=== PATIENT | female | born 1945 | race Caucasian/White ===

== ENCOUNTER → 2016-12-16 | Outpatient (CLI) | payer OTHER ==
--- NOTE | 2016-12-17 18:51 | DI ---
CT LUMBAR SPINE SCAN, 12/16/2016 12:50 PM : Clinical History: Pathological fracture of sacral vertebral body. Previous Exam: 10/12/2016. Scans are obtained from T11 to the first coccygeal segment without IV contrast. Sagittal and coronal reformatted images are generated. Curved coronal and reformatted axial scans parallel to the disc spa jean-paul are produced. The vertebral bodies are of normal height and size. There are laminectomies at L4 and L5 and anterior and posterior fusions have been performed between L3-4 and L5-S1. Posterior fusions are accomplished with metallic struts transfixed with pedicle screws between L3 and S1. There is disc space narrowing at L1-2 and L2-3. There is diffuse osteoporosis. No fractures are identified. Specifically, no defin ite fracture is seen in the sacrum. In the L3 vertebral body, cement has been injected and the pedicl e screws are embedded in the cement. The bone graft cage is in 2 separate pieces at L3-4 and there is no continuity of bone indicating nonunion. The bone graft cage at L4-5 is in 2 separate segments and there is continuity of bone. The bone graft cage at L5-S1 is in 2 separate pieces and there is no co ntinuity of bone. Bone grafts surround the metallic hardware from L3-4 through L5-S1, and there is no solid fusion between the bone grafts and S1 and the bone grafts and L3. On the previous study there was high density material along the left multifidus muscle but this is no longer visible. This high d ensity material probably was contrast from an injection procedure performed the same day. Both SI edy nts are normal. There is osteoporosis. T11-12 has a focal left lateral disc herniation that is partially calcified. There is no canal or nadia ral foraminal stenosis. T12-L1 has a focus of calcification in the disc but the disc space is normal. The L1-2 and L2-3 disc spaces have bulging but not herniated disc without canal or neural foraminal stenosis. The L3-4 through L5-S1 disc spaces show no canal or neural foraminal stenosis. READIN. Status post L4 and L5 laminectomies with anterior and posterior fusions between L3-4 and L5-S1. P osterior fusions are performed with metallic struts transfixed with pedicle screws between L3 and S1 and bone grafts. The bone grafts are solid only between L4 and L5. The anterior fusions are solid onl y at L4-5. There is no canal or neural foraminal stenosis from L3-4 through L5-S1. 2. There is a focal left lateral disc herniation at T11-12 that is partially calcified. There is no canal or neural foraminal stenosis. 3. L1-2 and L2-3 have bulging but not herniated discs without canal or neural foraminal stenosis. Th e T12-L1 disc space is normal. 4. Osteoporosis. No sacral fracture is identified.
== END ==
LOC: CT 12:44
PROVIDERS: ATTEND Neurological Surgery
DX: M84.48XA Pathological fracture, other site, initial encounter for fracture (principal); M79.605 Pain in left leg; Z98.1 Arthrodesis status
CPT/HCPCS: 72131; 99213; G0463

== ENCOUNTER → 2016-12-29 | Outpatient (CLI) | payer OTHER ==
[2016-12-29 15:43] LABS: BILIRUBIN,TOTAL 0.4 mg/dL (0.3-1.2); CALCIUM 9.3 mg/dL (8.7-10.7); POTASSIUM 4.3 meq/L (3.8-5.2); TOTAL PROTEIN 6.4 g/dL (6.1-8.0)
[2016-12-29 15:45] LABS: HEMOGLOBIN A1C 5.63 % (4.2-6.0); MEAN BLOOD GLUCOSE (CALC) 101.479 mg/dL
== END ==
LOC: LAB 09:27
PROVIDERS: ATTEND Physician Assistant Medical
DX: E11.69 Type 2 diabetes mellitus with other specified complication (principal); E03.9 Hypothyroidism, unspecified; I10 Essential (primary) hypertension; E78.5 Hyperlipidemia, unspecified; R79.9 Abnormal finding of blood chemistry, unspecified
CPT/HCPCS: 80053; 83036; 84443

== ENCOUNTER 2016-12-30 13:14 | Day surgery (SDC) | payer OTHER ==
[~2016-12-30 13:14] MED LIST: BETAMET ACET/BETAMET NA PH 6 MG/1 ML - 5 ML IAC ONE; Iopamidol Inj 61% 50 ML VIAL INTRATHEC ONE; LIDOCAINE IM ONE; Ropivacaine 0.2% VIAL 2 MG/ML VIAL IAC ONE; SODIUM BICARB IM ONE
[2016-12-30 13:49] VITALS: RESP 14; TEMP 97.8
--- NOTE | 2016-12-30 17:51 | GEN.OPNOTE ---
Facet Injection Procedure: Other (Left SI joint injection) Procedure Code - Neurosurgery: Other (57094) -: Consent: Rationale for procedure, nature of procedure, possible risks and benefits were discussed with the patient. Risks including allergic reaction to medications, known effects of steroid medications including transient elevations in blood sugar with aggravation of pre-existing diabetes and remote risk of aseptic necrosis of the hip. Infection or bleeding with potential risk of neurologic injury with weakness, paralysis or were all reviewed with the patient who wished to proceed. Anesthesia, sedation: No intravenous access or sedation was used. Physiologic monitoring of pulse and oxygen saturation was utilized. Procedure: The patient was placed prone on the operating room table, prepped with Chloroprep and sterilely draped. The skin was anesthetized with 1% Buffered Xylocaine. Under fluoroscopic control a 22-gauge needle was advanced into the left SI joint . Omnipaque was injected under real-time fluoroscopy. Following this [1] ml of a mixture of Celestone (6mg/ml) and Ropivacaine was injected. AP images of the final needle placement was obtained. The needle was removed and the patient returned to the post procedure recovery room where they were monitored for any side effects. Pain assessment: Preprocedure pain [7/10]/10, post procedure pain [6/10]/10. Discharge instructions: Patient was given a pain log to be filled out and returned. A delayed response to the steroids of 2-5 days was discussed.
== END 2016-12-30 14:43 | disposition home or self-care (01) ==
LOC: SDSC 13:14
PROVIDERS: ATTEND Neurological Surgery
DX: M53.3 Sacrococcygeal disorders, not elsewhere classified (principal)
CPT/HCPCS: 27096; 76000; J0702; J2795; J2001

== ENCOUNTER 2017-01-18 13:10 | Observation (INO) | payer OTHER ==
[2017-01-18] MEDS ORDERED: LORazepam 2 MG/1 ML VIAL IVP ONE (13:51)
[2017-01-18] MEDS ORDERED: KETOROLAC 30 MG/1 ML VIAL IVP ONE (13:51)
[2017-01-18] MEDS ORDERED: fentaNYL Inj 100 MCG/2 ML VIAL IVP ONE (13:54)
[2017-01-18] MEDS ORDERED: Sodium Chloride 0.9% 1,000 ML PRIMARY IV SCH ×2 (14:00→19:44)
--- NOTE | 2017-01-18 14:00 | PDOC ---
Hip Injury/Pain HPI - General Chief Complaint: Lower Extremity Problem/Injury Stated Complaint: LEFT HIP PAIN Date Seen by Provider: 01/18/17 Time Seen by Provider: 13:55 Source: POSITIVE: Patient Exam Limitations: POSITIVE: No limitations Nurse's Notes Reviewed & Considered: Yes - History of Present Illness Initial Comments: Patient comes in today with chief complaint of leg pain and left sacroiliac pain. She had a steroid injection into her SI joints on December 30. She's had continued and escalating pain since that wraps around her left hip and radiates into her groin. She denies any fever chills or sweats, nausea vomiting or diarrhea, no hematuria or dysuria. He now has weakness in her left leg and has had intermittent falls because her legs become suddenly weak and does not support her weight. SHe denies Any foot drop, no loss of continence of urine or stool. Have you received a tetanus shot in the past 10 years?: Yes Location: Left Hip Timing: REPORTS: Constant, Getting Worse Duration: >1 week Severity: Severe Location at Time of Onset: REPORTS: Other (Status post steroid injection of the left SI joint.) Quality: REPORTS: "Pain", Sharpness, Stabbing, Throbbing, Tenderness Modifying Factors: REPORTS: Walking, Movement, Nothing Relieves Symptoms Prior to Fall: REPORTS: Weakness Subsequent Symptoms: REPORTS: Weakness Similar Symptoms Previously: No Recent Care Received: REPORTS: Treated by MD Any Prior Injuries Related to Current Complaint?: No - Patient Home Medications Home Medications: Home Medications Aspirin 81 mg PO DAILY tab 05/07/15 Cyanocobalamin (Vitamin B-12) [B-12] 250 mcg PO QD tab 05/07/15 Docusate Sodium [Stool Softener] 100 mg PO DAILY cap 05/07/15 Garlic 1 each PO QD cap 05/07/15 Lactobacillus Acidophilus [Acidophilus] 1 each PO QD cap 05/07/15 Multivitamin [Daily Vitamin] 1 tab PO DAILY tab 05/07/15 [place]-3 Fatty Acids/Fish Oil [Fish Oil 1,000 Mg Capsule] 1 each PO QD cap 05/07 Ubidecarenone [Co Q-10] 400 mg PO QD cap 05/07/15 Oxygen (O2) 1 l NS ASDIR #1 unit 04/16/16 Epinephrine [Epipen 2-Alfonzo] 0.3 mg IM PRN #2 unit 06/23/16 Celecoxib [Celebrex] 1 cap PO BID #180 cap 08/18/16 Esomeprazole Magnesium [Nexium] 40 mg PO QD #90 cap 08/18/16 Estrogens, Conj Vaginal Cream [Premarin Vaginal Cream] 1 gm VAGINAL 3XW #3 tube 08/18/16 Fluoxetine HCl [Prozac] 1 cap PO BID #180 cap 08/18/16 Furosemide [Lasix] 1 tab PO DAILY #90 tab 08/18/16 Gabapentin [Neurontin] 1 cap PO TID #270 cap 08/18/16 Levothyroxine Sodium [Synthroid] 1 tab PO DAILY #90 tab 08/18/16 Lisinopril 1 tab PO DAILY #90 tab 08/18/16 Oxybutynin Chloride [Ditropan Xl] 5 mg PO DAILY #90 tab 08/18/16 Pioglitazone HCl [Actos] 15 mg PO DAILY #90 tab 08/18/16 Potassium Chloride [K-Tab Er] 10 meq PO QD #90 tab 08/18/16 Simvastatin [Zocor] 1 tab PO DAILY #90 tab 08/18/16 Trazodone HCl 1 tab PO QHS #90 tab 08/18/16 Methylprednisolone [Medrol] 4 mg PO 3-4XD #1 box 09/17/16 Oxycodone HCl/Acetaminophen [Percocet 5-325 Mg Tablet] 1 tab PO Q4-6H #60 tab Tizanidine HCl 1 cap PO TID #90 cap 09/17/16 Blood Sugar Diagnostic [Precision Xtra] 1 each IN BID #360 strip 11/10/16 - Patient Allergies Allergies/Adverse Reactions: Allergies Allergy/AdvReac Type Severity Reaction Status Date / Time venom-honey bee Allergy Severe Anaphylaxis Verified 01/18/17 13:30 venom-wasp Allergy Severe Anaphylaxis Verified 01/18/17 13:30 aspirin Allergy Intermediate NOT Verified 01/18/17 13:30 APPLICABLE codeine Allergy Intermediate NOT Verified 01/18/17 13:30 APPLICABLE morphine Allergy Intermediate NOT Verified 01/18/17 13:30 APPLICABLE Penicillins Allergy Intermediate NOT Verified 01/18/17 13:30 APPLICABLE Past Medical History - heen HEENT History: Other (please comment) Additional HEENT History: WEARS GLASSES Cardiovascular History: Hypertension, Hyperlipidemia Respiratory History: Denies History Gastrointestinal History: GERD Genitourinary History: Other (please comment) Additional Genitourinary History: OVER ACTIVE BLADDER Endocrine History: Type 2 Diabetes (oral), Hypothyroidism Musculoskeletal History: Arthritis, Muscle Weakness, Limited ROM, Joint Pain Prosthesis or Implant: Yes (RIGHT KNEE REPLACEMENT) Neurological History: Denies History Blood Disorders: Denies History Psychiatric History: Depression, Anxiety Disorders History of Sexually Transmitted Diseases: No Female Reproductive History: Hysterectomy Obstetrical History: Denies History Cancer History: Denies History In Past Year Been Physically Harmed or Verbally Threatened: No (PER PATIENT) History of MDRO: No History of Other Communicable Diseases: No Tobacco Use: Never Smoker Alcohol Use: Occasionally Substance Use Type: None Previous Surgical History: Yes Type / Date of Surgery: CHOLECYSTECTOMY, ABDOMINAL ADHESION SURGERY, PARTIAL HYSTERECTOMY, SINUS SURGERY, LEFT HAND SURGERY, LEFT TARSAL TUNNEL, RIGHT CARPAL TUNNEL, RIGHT KNEE REPLACEMENT, L3-S1 DISCECTOMY WITH FUSION Anesthesia Reactions: No Malignant Hyperthermia: No Family History of Malignant Hyperthermia: No Significant Family History: No pertinent family hx ROS - Limitations ROS Limitations: No Limitations Constitution: REPORTS: Denies Symptoms Cardiovascular: REPORTS: Denies Cardiac Symptoms Respiratory: REPORTS: Denies Resp Symptoms Neurological: REPORTS: Weakness Gastrointestinal: REPORTS: Denies GI Symptoms Endocrine: REPORTS: Denies Symptoms Musculoskeletal: REPORTS: Other (Last S sign joint tenderness and tenderness over her left hip) Genitourinary: REPORTS: Denies Symptoms Eyes: REPORTS: Denies Symptoms ENT: REPORTS: Denies Symptoms Skin: REPORTS: Denies Skin Symptoms Lympathic: REPORTS: Denies Lympathic Symptoms Immunologic: POSITIVE: Denies Symptoms Psychiatric: POSITIVE: Denies Psych Symptoms Hip Injury / Pain Exam - General Appearance General Appearance: POSITIVE: Alert, Cooperative, No Evidence of Trauma, Anxious , Severe Distress - Lower Extremity Extremities: POSITIVE: No Pedal Edema, No Obvious Injury to Knee, No Deformity to Knee, Hip Pain on Leg Movement - HEENT HEENT: POSITIVE: Head Inspection Nml, Eyes Inspection Nml, Ears Inspection Nml, Nose Inspection Nml, PERRL, EOMI - Pupil Size Pupil Size: 4 mm: Bilateral - Neck/Back Neck: POSITIVE: Normal Inspection, Non-Tender Back: POSITIVE: Normal Inspection, No CVA Tenderness, Non Tender, Painless ROM - Respiratory / CVS Cardiovascular: POSITIVE: Regular Rate and Rhythm, Heart Sounds Normal Respiratory: POSITIVE: Chest Non Tender, No Ecchymosis, Breath Sounds Normal, No Respiratory Distress Peripheral Pulses: Dorsalis-pedis (R): 2+, Dorsalis-pedis (L): 2+ - Abdomen Abdomen: Soft: (All Quadrants), Normal Bowel Sounds: (All Quadrants), Denies Tenderness: (All Quadrants) - Skin Skin: POSITIVE: Color Normal, No Rash, Warm, Dry - Neuro/Psych Neuro / Psych: POSITIVE: Oriented x 3 Reflexes: Patellar (R): 3+, Patellar (L): 3+ Hip Injury / Pain Progress - Results Reviewed by me Xrays/CTs/US Reviewed by me: Yes Discussed with Radiologist: Yes Lab Results Reviewed: Yes Lab Results:: Laboratory Results 01/18/17 Range/Units 14:11 WBC 4.16 L (4.8-10.8) 10^3/uL RBC 3.63 L (4.20-5.40) 10^6/uL Hgb 11.2 L (12.0-16.0) g/dL Hct 35.6 L (37.0-47.0) % MCV 98.1 (81-99) FL MCH 30.9 (27-31) PG MCHC 31.5 L (33-37) g/dL RDW Std Deviation 48.0 (39-50) fL RDW Coeff of Erwin 13.8 (11.5-14.5) % Plt Count 186 (140-350) 10*3/uL MPV 10.7 (7.4-12.2) FL Immature Gran % (Auto) 0 (0-5) % Neut % (Auto) 38.2 L (50-80) % Lymph % (Auto) 43.5 (10-50) % [place] % (Auto) 13.5 (5-15) % Eos % (Auto) 4.1 (0-8) % Baso % (Auto) 0.7 (0-1) % Immature Gran # (Auto) 0 10*3/UL Neut # (Auto) 1.59 10*3/UL Lymph # (Auto) 1.81 10*3/uL [place] # (Auto) 0.56 (0.3-0.8) 10*3/UL Eos # (Auto) 0.17 10*3/UL Baso # (Auto) 0.03 10*3/UL WBC Morphology Comment Normal morphology (NORM) Plt Morphology Comment Normal morphology (NORM) RBC Morph Comment Normal morphology (NORM) ESR 23 H (0-20) MM/HR Sodium 138 (135-145) meq/L Potassium 4.5 (3.8-5.2) meq/L Chloride 101 (98-112) meq/L Carbon Dioxide 31 (23-33) meq/L Anion Gap 6 (5-20) BUN 21 (7-22) mg/dL Creatinine 1.0 (0.50-1.20) mg/dL Estimated GFR 55 (>60 ml/min/1.73m(2)) BUN/Creatinine Ratio 21.00 H (6-20) Glucose 89 (78-110) mg/dL Calculated Osmolality 287.0 (267-292) mOsm/kg Calcium 9.1 (8.7-10.7) mg/dL Magnesium 2.0 (1.6-2.4) mg/dL Total Bilirubin 0.3 (0.3-1.2) mg/dL AST 32 (8-39) IU/L ALT 37 (9-52) IU/L Alkaline Phosphatase 78 (38-126) IU/L C-Reactive Protein 0.8 (0.0-0.9) mg/dL Total Protein 6.5 (6.1-8.0) g/dL Albumin 3.6 (3.5-4.8) g/dL Globulin 2.8 (2.50-4.10) g/dL Albumin/Globulin Ratio 1.20 L (1.3-2.0) mg/g - Patient's Progress Pain Medication Addressed: POSITIVE: Yes Re-Examine Time: 17:38 Status: POSITIVE: Improved MDM / ED Course: Patient was brought back to the main emergency Department, examined, an IV started and blood sent to the lab for studies, MRI of her SI joint was obtained. She received Toradol, fentanyl, and Ativan. She improved somewhat but still has weakness and pain in her lower back and left lower extremity. Findings: MRI shows no acute abnormalities appreciated. CBC shows white count of 4, hemoglobin of 11, hematocrit of 35. Platelets are normal. ESR is elevated, CRP is normal. Conference of metabolic panel is within normal limits. Urinalysis is pending. Assessment: Leg pain and extreme lower weakness on the left. Plan: Patient being admitted for further evaluation, and pain control. - Consult Consult (If Yes, Name of Consulting MD & Time Called): Yes (Dr Dozier: [id number]) Consulting MD will see pt:: POSITIVE: [facility] Admit Counseled: POSITIVE: Patient, Family, RE: Lab Results, RE: Radiology Results, RE : DX Patient Care Time - Estimated PCT Patient Care Time (In Minutes): 45 Vital Signs - Recent Vital Signs Vital Signs: Vital Signs (Last 8 hours) Temp Pulse Resp BP Pulse Ox 01/18/17 13:10 97.4 F 70 18 104/85 94 - VS Reviewed Vital Signs Reviewed: Yes Discharge Clinical Impression: Back pain, Weakness of lower extremity Discharge Disposition: Admit to Inpatient Condition: Stable Date Decision to Admit to Inpatient: 01/18/17 Time Decision to Admit to Inpatient: 17:42
[2017-01-18 14:14] LABS: BASOPHILS # (AUTO) 0.03 10*3/UL; BASOPHILS % (AUTO) 0.7 % (0-1); EOSINOPHILS % (AUTO) 4.1 % (0-8); HEMATOCRIT 35.6 % (37.0-47.0); HEMOGLOBIN 11.2 g/dL (12.0-16.0); IMM GRAN % (AUTO) 0 % (0-5); IMM GRAN# (AUTO) 0 10*3/UL; LYMPHOCYTES # (AUTO) 1.81 10*3/uL; LYMPHOCYTES % (AUTO) 43.5 % (10-50); MEAN CORPUSCULAR HEMOGLOBIN 30.9 PG (27-31); MEAN CORPUSCULAR HGB CONC 31.5 g/dL (33-37); MEAN PLATELET VOLUME 10.7 FL (7.4-12.2); MONOCYTES # (AUTO) 0.56 10*3/UL (0.3-0.8); MONOCYTES % (AUTO) 13.5 % (5-15); NEUTROPHILS # (AUTO) 1.59 10*3/UL; NEUTROPHILS % (AUTO) 38.2 % (50-80); RDW COEFFICIENT OF VARIATION 13.8 % (11.5-14.5); RED BLOOD COUNT 3.63 10^6/uL (4.20-5.40); WHITE BLOOD COUNT 4.16 10^3/uL (4.8-10.8)
[2017-01-18 14:18] LABS: PLATELET MORPHOLOGY COMMENT NORMAL MORPHOLOGY (NORM)
[2017-01-18 14:28] LABS: BILIRUBIN,TOTAL 0.3 mg/dL (0.3-1.2); C-REACTIVE PROTEIN 0.8 mg/dL (0.0-0.9); CALCIUM 9.1 mg/dL (8.7-10.7); POTASSIUM 4.5 meq/L (3.8-5.2); TOTAL PROTEIN 6.5 g/dL (6.1-8.0)
[2017-01-18 15:16] LABS: ERYTHROCYTE SEDIMENTATION RATE 23 MM/HR (0-20)
[2017-01-18 17:50] LABS: BILIRUBIN,URINE NEGATIVE (NEG); CLARITY,URINE CLEAR (CLEAR); GLUCOSE, URINE (UA) NEGATIVE (NEG); LEUKOCYTE ESTERASE ,URINE NEGATIVE (NEG); NITRATE,URINE NEGATIVE (NEG); OCCULT BLOOD,URINE NEGATIVE (NEG); PH,URINE 5.5 (5.0-8.5); PROTEIN,URINE NEGATIVE (NEG); URINE SAMPLE TYPE CLEAN CATCH URINE
--- NOTE | 2017-01-18 17:51 | DI ---
MRI PELVIS SCAN WITHOUT AND WITH IV CONTRAST, 01/18/2017 2:22 PM: Clinical History: Sacroiliac joint pain. Status post SI joint injection. Previous Exam: None at this facility. Technique: Axial and sagittal T1 weighted and T2 weighted and STIR scans. Fat saturated scans postcon trast axial and sagittal T1-weighted scans. The patient is status post anterior and posterior fusions from L3-4 through L5-S1. Posterior fusions are performed with metallic struts transfixed with pedicle screws between L3 and S1. There are sean ctomies from L3-L5. There are scan artifacts related to the metallic hardware on the post contrast fa t-saturated T1-weighted scans, especially in the region of S1 and S2. Both sacroiliac joints have a normal appearance without evidence of destructive change or edema. Foll owing contrast, no abnormal bone signal pattern is present in the region of either sacroiliac joint. There is fluid posteriorly in the midline between S1 and extending at least to the limit of the scans at the mid body of L2 due to Lidia's fascia. There is no canal stenosis from L3-S1. There is an harvey arent bulging disc at L2-3 seen on the sagittal sequences only. There is no fluid in the pelvis. No m ass or adenopathy is identified. The patient is status post hysterectomy and bilateral salpingo-oopho rectomy. Readin. Both sacroiliac joints show no evidence of inflammatory change or abnormal bone signal pattern. 2. Status post anterior and posterior fusions between L3-4 and L5-S1 with a bulging disc at L2-3. 3. There is no fluid in the pelvis or evidence of a pelvic mass.
[2017-01-18] MEDS ORDERED: fentaNYL Inj 100 MCG/2 ML VIAL IVP PRN ×2 (18:24→19:44)
[2017-01-18] MEDS ORDERED: HEPARIN 5000 UNIT/1 ML SUBCUT ONE (18:25)
[2017-01-18] MEDS ORDERED: HEPARIN 5000 UNIT/1 ML SUBCUT SCH (18:30)
--- NOTE | 2017-01-18 18:30 | PDOC ---
History and Physical - History of Present Illness History of Present Illness: This very nice 71-year-old female past medical history significant for diabetes on oral medication comes to the ER complaining of left leg and left sacroiliac pain she had an an steroid injection in her SI joint on December 30 and stent her pain is continued to get worse and escalating around her left hip which radiates into her groin denies any chest pain nausea vomiting diarrhea hematuria dysuria she states that her legs do not support her weight and become suddenly weak and prone to fall was not incontinent of urine or stool. Her steroid injection was given to her by Dr. villa apparently at home she tried to move some furniture as well before this happened and apparently she cracked one of the vertebrae that was fused with the hardware is inserted her back was fused by Dr. Gamboa Past Medical History Medical History: Diabetes Surgical History: Side joint injection December 30 Tobacco Use: Never Smoker Substance Use Type: None Alcohol Use: None Medication / Allergies Home Medications: Home Medications Medication Instructions Recorded Confirmed Type Aspirin 81 mg PO DAILY tab 05/07/15 01/18/17 History Cyanocobalamin (Vitamin B-12) 250 mcg PO QD tab 05/07/15 01/18/17 History [B-12] Docusate Sodium [Stool Softener] 100 mg PO DAILY cap 05/07/15 01/18/17 History Lactobacillus Acidophilus 1 each PO QD cap 05/07/15 01/18/17 History [Acidophilus] Multivitamin [Daily Vitamin] 1 tab PO DAILY tab 05/07/15 01/18/17 History [place]-3 Fatty Acids/Fish Oil [Fish 1 each PO QD cap 05/07/15 01/18/17 History Oil 1,000 Mg Capsule] Ubidecarenone [Co Q-10] 400 mg PO QD cap 05/07/15 01/18/17 History Epinephrine [Epipen 2-Alfonzo] 0.3 mg IM PRN #2 unit 06/23/16 01/18/17 Clinic Celecoxib [Celebrex] 1 cap PO BID #180 cap 08/18/16 01/18/17 Clinic Esomeprazole Magnesium [Nexium] 40 mg PO QD #90 cap 08/18/16 01/18/17 Clinic Estrogens, Conj Vaginal Cream 1 gm VAGINAL 3XW #3 tube 08/18/16 01/18/17 Clinic [Premarin Vaginal Cream] Fluoxetine HCl [Prozac] 1 cap PO BID #180 cap 08/18/16 01/18/17 Clinic Furosemide [Lasix] 1 tab PO DAILY #90 tab 08/18/16 01/18/17 Clinic Gabapentin [Neurontin] 1 cap PO TID #270 cap 08/18/16 01/18/17 Clinic Levothyroxine Sodium [Synthroid] 1 tab PO DAILY #90 tab 08/18/16 01/18/17 Clinic Lisinopril 1 tab PO DAILY #90 tab 08/18/16 01/18/17 Clinic Oxybutynin Chloride [Ditropan Xl] 5 mg PO DAILY #90 tab 08/18/16 01/18/17 Clinic Pioglitazone HCl [Actos] 15 mg PO DAILY #90 tab 08/18/16 01/18/17 Clinic Potassium Chloride [K-Tab Er] 10 meq PO QD #90 tab 08/18/16 01/18/17 Clinic Simvastatin [Zocor] 1 tab PO DAILY #90 tab 08/18/16 01/18/17 Clinic Trazodone HCl 1 tab PO QHS #90 tab 08/18/16 01/18/17 Clinic Methylprednisolone [Medrol] 4 mg PO 3-4XD #1 box 09/17/16 01/18/17 Clinic Oxycodone HCl/Acetaminophen 1 tab PO Q4-6H #60 tab 09/17/16 01/18/17 Clinic [Percocet 5-325 Mg Tablet] Tizanidine HCl 1 cap PO TID #90 cap 09/17/16 01/18/17 Clinic Blood Sugar Diagnostic [Precision 1 each IN BID #360 strip 11/10/16 01/18/17 Clinic Xtra] Allergies/Adverse Reactions: Allergies Allergy/AdvReac Type Severity Reaction Status Date / Time venom-honey bee Allergy Severe Anaphylaxis Verified 01/18/17 18:35 venom-wasp Allergy Severe Anaphylaxis Verified 01/18/17 18:35 aspirin Allergy Intermediate NOT Verified 01/18/17 18:35 APPLICABLE codeine Allergy Intermediate NOT Verified 01/18/17 18:35 APPLICABLE morphine Allergy Intermediate NOT Verified 01/18/17 18:35 APPLICABLE Penicillins Allergy Intermediate NOT Verified 01/18/17 18:35 APPLICABLE Review of Systems - Review of Systems All Systems: Reviewed & No Additional Complaints Except as Stated - Respiratory Respiratory: DENIES: Negative System Review, Cough, Sputum, Dyspnea At Rest, Dyspnea with Exertion, Pleuritic Pain, Hemoptysis, Wheezing, Other, See HPI - Cardiovascular Cardiovascular: DENIES: Negative System Review, Chest Pain, Edema, Syncope, Palpitations, Orthopnea, Paroxysmal Nocturnal Dyspnea, Other, See HPI - Gastrointestinal Gastrointestinal / Abdominal: DENIES: Negative System Review, Nausea, Vomiting, Diarrhea, Constipation, Abdominal Pain, Bloody Stool, Poor Appetite, Heartburn, Regurgitation, Bloating, Lactose Intolerance, Melena, Bright Red Blood Per Rectum, Other, See HPI - Musculoskeletal Musculoskeletal: REPORTS: Other (Back pain left groin and extremity) - Neurological Neurologic: DENIES: Negative System Review, Headache, Numbness/Paresthesia, Tremors, Weakness, Seizures, Head Trauma, LOC, Dizziness, Confusion, Memory Loss , Difficulty Walking, Incoordination, Other, See HPI Exam - General General Appearance: POSITIVE: No Acute Distress, Cooperative - Head Head Exam: POSITIVE: Normal Inspection - Eye Eye Exam: POSITIVE: Normal Appearance, PERRL, EOMI - Respiratory Respiratory Exam: POSITIVE: Clear to Auscultation - Bilaterally, Breathing Non Labored, Normal To Percussion - Cardiovascular Cardiovascular Exam: POSITIVE: RRR, No Murmur, No Clicks, No Gallops - GI/Abdominal GI/Abdominal Exam: POSITIVE: Non Tender, Non Distended, Soft - Extremities Extremities Exam: POSITIVE: Normal Inspection, No Clubbing Present, No Edema Present, No Cyanosis Present Additional Extremities Exam Details: Left leg the raise up to around 35 and the pain starts right leg all the way to 45 pain radiates into her groin I will also get x-ray of her left hip - Neurological Neurological Exam: POSITIVE: Alert, Oriented x 3, CN II-XII Intact Results - Labs CBC and BMP: 01/18/17 14:11 01/18/17 14:11 Assessment and Plan - Patient Problems (1) Back pain Current Visit: Yes Status: Acute Comment: Most likely chronic MRI was done in no acute findings will consult PT OT pain control she has already received the some pain control meds in the ER she was on a Medrol Dosepak I will start her on herprednisone 40 (2) Leg weakness Current Visit: Yes Status: Acute
[2017-01-18] MEDS ORDERED: methylPREDNISolone 125 MG/2 ML VIAL IVP ONE ×2 (18:40→19:44)
[2017-01-18] MEDS ORDERED: Influenza 16-17 Vaccine(4yrs+) 45 MCG/0.5 ML SYRINGE IM SCH (19:03)
[2017-01-18 19:16] VITALS: RESP 18
[2017-01-18] MEDS ORDERED: EPINEPHrine 0.3 MG/0.3 ML AUTO-INJECTOR IM PRN (19:44)
[2017-01-18] MEDS ORDERED: ONDANSETRON 4 MG/2 ML VIAL IVP PRN (19:44)
[2017-01-18] MEDS ORDERED: oxyCODONE-ACETAMINOPHEN 5-325 TAB PO SCH (19:44)
[2017-01-18] MEDS ORDERED: NORMAL SALINE 10 ML SYRINGE FLUSH IVP PRN (19:44)
[2017-01-18] MEDS ORDERED: ESTROGENS,CONJUGATED 30 GM CREAM VAGINAL SCH (19:44)
[2017-01-18] MEDS ORDERED: BLOOD SUGAR DIAGNOSTIC IN SCH (21:00)
[2017-01-18] MEDS ORDERED: FLUOXETINE HCL PO SCH (21:00)
[2017-01-18] MEDS: CELECOXIB 200 MG CAPSULE PO SCH (21:04)
[2017-01-18] MEDS: GABAPENTIN 300 MG CAPSULE PO SCH (21:04)
[2017-01-18] MEDS: Sodium Chloride 0.9% 1,000 ML PRIMARY IV SCH (21:06)
[2017-01-18] MEDS: Potassium Chloride Tab 10 MEQ TAB PO SCH (21:09)
[2017-01-18] MEDS ORDERED: DOCUSATE 100 MG CAPSULE ONE (21:15)
[2017-01-19] MEDS: oxyCODONE-ACETAMINOPHEN 5-325 TAB PO PRN ×3 (01:32→09:57)
[2017-01-19] MEDS: HEPARIN 5000 UNIT/1 ML SUBCUT SCH ×2 (01:33→11:30)
[2017-01-19] MEDS ORDERED: ESTROGENS,CONJUGATED 30 GM CREAM VAGINAL PRN (01:41)
[2017-01-19] MEDS: Sodium Chloride 0.9% 1,000 ML PRIMARY IV SCH (04:36)
[2017-01-19 06:08] LABS: BASOPHILS # (AUTO) 0 10*3/UL; BASOPHILS % (AUTO) 0 % (0-1); EOSINOPHILS % (AUTO) 0.3 % (0-8); HEMATOCRIT 35.5 % (37.0-47.0); IMM GRAN % (AUTO) 0.3 % (0-5); IMM GRAN# (AUTO) 0.01 10*3/UL; LYMPHOCYTES # (AUTO) 0.79 10*3/uL; LYMPHOCYTES % (AUTO) 21.3 % (10-50); MEAN CORPUSCULAR HEMOGLOBIN 30.2 PG (27-31); MEAN PLATELET VOLUME 11.6 FL (7.4-12.2); MONOCYTES # (AUTO) 0.08 10*3/UL (0.3-0.8); MONOCYTES % (AUTO) 2.2 % (5-15); NEUTROPHILS # (AUTO) 2.82 10*3/UL; NEUTROPHILS % (AUTO) 75.9 % (50-80); RDW COEFFICIENT OF VARIATION 13.6 % (11.5-14.5); RED BLOOD COUNT 3.64 10^6/uL (4.20-5.40); WHITE BLOOD COUNT 3.71 10^3/uL (4.8-10.8)
[2017-01-19 06:13] LABS: BILIRUBIN,TOTAL 0.2 mg/dL (0.3-1.2); POTASSIUM 5.1 meq/L (3.8-5.2)
[2017-01-19 06:16] LABS: PLATELET MORPHOLOGY COMMENT NORMAL MORPHOLOGY (NORM)
[2017-01-19] MEDS ORDERED: OMEPRAZOLE 40 MG CAPSULE PO SCH (06:30)
[2017-01-19] MEDS ORDERED: LEVOTHYROXINE 88 MCG TABLET PO SCH (06:30)
[2017-01-19] MEDS ORDERED: Simvastatin Tab 40 MG TAB PO SCH ×2 (09:00→21:00)
[2017-01-19] MEDS ORDERED: FLUoxetine 20 MG CAPSULE PO SCH (09:00)
[2017-01-19] MEDS ORDERED: LISINOPRIL 5 MG TABLET PO SCH (09:00)
[2017-01-19] MEDS ORDERED: predniSONE Tab 20 MG TAB PO SCH ×2 (09:00)
[2017-01-19] MEDS ORDERED: ASPIRIN 81 MG (BABY) CHEWABLE TABLET PO SCH (09:00)
[2017-01-19] MEDS ORDERED: ACIDOPHILUS/BULGARICUS CHEWABLE TABLET PO SCH (09:00)
[2017-01-19] MEDS ORDERED: CYANOCOBALAMIN 250 MCG PO SCH (09:00)
[2017-01-19] MEDS ORDERED: LISINOPRIL PO SCH (09:00)
[2017-01-19] MEDS ORDERED: FUROSEMIDE 20 MG TABLET PO SCH (09:00)
[2017-01-19] MEDS ORDERED: PIOGLITAZONE HCL 15 MG PO SCH (09:00)
[2017-01-19] MEDS ORDERED: Oxybutynin ER Tab 5 MG TAB PO SCH (09:00)
[2017-01-19] MEDS ORDERED: DOCUSATE 100 MG CAPSULE PO SCH ×2 (09:00)
[2017-01-19] MEDS ORDERED: Multivitamin Tab 1 TAB PO SCH (09:00)
[2017-01-19] MEDS: Potassium Chloride Tab 10 MEQ TAB PO SCH (09:11)
[2017-01-19] MEDS: CELECOXIB 200 MG CAPSULE PO SCH (09:11)
[2017-01-19] MEDS: GABAPENTIN 300 MG CAPSULE PO SCH (09:12)
--- NOTE | 2017-01-19 09:42 | DI ---
AP PELVIS and BILATERAL HIPS, 01/19/2017 7:00 AM : Clinical History: Left hip pain. Previous Exam: None at this facility. There is no soft tissue abnormality. The bony structures of the pelvis are normal. 2 views of the lef t hip are normal. 2 views of the right hip show degenerative bony spurring along the superior and pos terior margin of the acetabulum with erosive remodeling changes involving the anterolateral margin of the right femoral head. There is no joint space narrowing of the right hip. The patient is status po st extensive lumbar surgery. Both SI joints show degenerative change. Readin. Views of the left hip are normal. 2. Views of the right hip show some degenerative spurring of the posterior and superior aspect of th e acetabulum and degenerative erosive change of the anterolateral margin of the right femoral head. T here is no joint space narrowing. 3. Bilateral sacroiliitis.
[2017-01-19 11:38] VITALS: TEMP 97.6
--- NOTE | 2017-01-19 12:38 | DCSUMMARY ---
Hospitalization Summary Hospital Course: Final Discharge Diagnosis: Current Visit Problems Problem Status Priority Diagnosed Code Back pain Acute M54.9 Leg weakness Acute R29.898 Diagnostic Data, Laboratory Data, and Procedures of Signifigance: Laboratory Results 01/18/17 01/18/17 01/19/17 Range/Units 14:11 17:34 05:30 WBC 4.16 L 3.71 L (4.8-10.8) 10^3/uL RBC 3.63 L 3.64 L (4.20-5.40) 10^6/uL Hgb 11.2 L 11.0 L (12.0-16.0) g/dL Hct 35.6 L 35.5 L (37.0-47.0) % MCV 98.1 97.5 (81-99) FL MCH 30.9 30.2 (27-31) PG MCHC 31.5 L 31.0 L (33-37) g/dL RDW Std Deviation 48.0 47.1 (39-50) fL RDW Coeff of [place] 13.8 13.6 (11.5-14.5) % Plt Count 186 186 (140-350) 10*3/uL MPV 10.7 11.6 (7.4-12.2) FL Immature Gran % (Auto) 0 0.3 (0-5) % Neut % (Auto) 38.2 L 75.9 (50-80) % Lymph % (Auto) 43.5 21.3 (10-50) % [place] % (Auto) 13.5 2.2 L (5-15) % Eos % (Auto) 4.1 0.3 (0-8) % Baso % (Auto) 0.7 0 (0-1) % Immature Gran # (Auto) 0 0.01 10*3/UL Neut # (Auto) 1.59 2.82 10*3/UL Lymph # (Auto) 1.81 0.79 10*3/uL [place] # (Auto) 0.56 0.08 L (0.3-0.8) 10*3/UL Eos # (Auto) 0.17 0.01 10*3/UL Baso # (Auto) 0.03 0 10*3/UL WBC Morphology Comment Normal morphology Normal morphology (NORM) Plt Morphology Comment Normal morphology Normal morphology (NORM) RBC Morph Comment Normal morphology Normal morphology (NORM) ESR 23 H (0-20) MM/HR Sodium 138 139 (135-145) meq/L Potassium 4.5 5.1 (3.8-5.2) meq/L Chloride 101 106 (98-112) meq/L Carbon Dioxide 31 26 (23-33) meq/L Anion Gap 6 7 (5-20) BUN 21 26 H (7-22) mg/dL Creatinine 1.0 1.0 (0.50-1.20) mg/dL Estimated GFR 55 55 (>60 ml/min/1.73m(2)) BUN/Creatinine Ratio 21.00 H 26.00 H (6-20) Glucose 89 169 H (78-110) mg/dL Calculated Osmolality 287.0 296.0 H (267-292) mOsm/kg Calcium 9.1 9.0 (8.7-10.7) mg/dL Magnesium 2.0 (1.6-2.4) mg/dL Total Bilirubin 0.3 0.2 L (0.3-1.2) mg/dL AST 32 23 (8-39) IU/L ALT 37 39 (9-52) IU/L Alkaline Phosphatase 78 73 (38-126) IU/L C-Reactive Protein 0.8 (0.0-0.9) mg/dL Total Protein 6.5 6.0 L (6.1-8.0) g/dL Albumin 3.6 3.3 L (3.5-4.8) g/dL Globulin 2.8 2.7 (2.50-4.10) g/dL Albumin/Globulin Ratio 1.20 L 1.20 L (1.3-2.0) mg/g Ur Collection Type Clean catch urine Urine Color Yellow Urine Clarity Clear (CLEAR) Urine pH 5.5 (5.0-8.5) Ur Specific [place] 1.015 (1.005-1.030) Urine Protein Negative (NEG) mg/dl Urine Glucose (UA) Negative (NEG) mg/dL Urine Ketones Trace (NEG) Urine Occult Blood Negative (NEG) Urine Nitrate Negative (NEG) Urine Bilirubin Negative (NEG) Urine Urobilinogen 1.0 (0.2) EU/dL Ur Leukocyte Esterase Negative (NEG) Ur Culture Indicated? Culture not set History and Physical pertinent to Admission: Course of Hospitalization: Is a very nice 71-year-old female with past medical history of chronic back pain comes into the ER complaining of left leg than left sacroiliac pain. She did have a steroid injection of her SI joint on December 30 and stated that her pain continued to get worse especially around her left hip radiates into the groin. MRI was done did not show any acute findings PTOT was ordered also prednisone was initiated the 40 mg daily for a total of 5 days did receive her first dose in the hospital this helped immensely she was able to walk around with the walker and the perform physical therapy she is much improved we will discharge her home on 4 more pills of prednisone 40 mg we'll follow up with her neurosurgeon as well and also I recommended outpatient PT and OT she will be not taking her Celebrex while she is on the prednisone or ibuprofen the patient agrees and understands the above plan she has no incontinence of urine or stool no nausea vomiting dysuria hematuria and all other review of systems are negative. According to nursing she was able to take her pajamas off with the straight leg raises both legs without any significant difficulty or pain On the date of discharge, the patient was examined: Gen.: No acute distress, alert, nontoxic Heart: Regular rate and rhythm, no murmurs, clicks, gallops, or rubs Lungs: Clear to auscultation bilaterally, breathing is nonlabored Abdomen/GI: Normal tones on auscultation, soft, nontender, nondistended Musculoskeletal/extremities: No clubbing, cyanosis, or edema Vitals reviewed and are listed below Vital Signs (24 hrs) Temp Pulse Pulse Resp BP BP Pulse Ox 01/19/17 11:37 97.6 F 50 L 18 142/54 95 01/19/17 07:36 97.4 F 61 18 123/49 97 01/19/17 04:40 98.3 F 63 18 108/59 95 01/19/17 00:38 97.9 F 69 18 120/83 98 01/18/17 19:16 98.0 F 67 18 125/88 97 01/18/17 18:23 96.9 F 66 15 112/65 91 01/18/17 13:10 97.4 F 70 18 104/85 94 Assessment and Plan: 1. As per discharge assessments above 2. Disposition: Home 3. Condition on discharge, stable and improved. 4. Diet: regular diet 5. Activities: resume normal activities 6. Follow-Up: With neurosurgeon and continue PT and OT as an outpatient 1. PCP 2. 7. Medications at the Time of Discharge: Home Medications Medication Instructions Recorded Confirmed Type Aspirin 81 mg PO DAILY tab 05/07/15 01/18/17 History Cyanocobalamin (Vitamin B-12) 250 mcg PO QD tab 05/07/15 01/18/17 History [B-12] Docusate Sodium [Stool Softener] 100 mg PO DAILY cap 05/07/15 01/18/17 History Lactobacillus Acidophilus 1 each PO QD cap 05/07/15 01/18/17 History [Acidophilus] Multivitamin [Daily Vitamin] 1 tab PO DAILY tab 05/07/15 01/18/17 History [place]-3 Fatty Acids/Fish Oil [Fish 1 each PO QD cap 05/07/15 01/18/17 History Oil 1,000 mg Capsule] Ubidecarenone [Co Q-10] 400 mg PO QD cap 05/07/15 01/18/17 History Epinephrine [Epipen 2-Alfonzo] 0.3 mg IM PRN #2 unit 06/23/16 01/18/17 Clinic Esomeprazole Magnesium [Nexium] 40 mg PO QD #90 cap 08/18/16 01/18/17 Clinic Estrogens, Conj Vaginal Cream 1 gm VAGINAL 3XW #3 tube 08/18/16 01/18/17 Clinic [Premarin Vaginal Cream] Fluoxetine HCl [Prozac] 1 cap PO BID #180 cap 08/18/16 01/18/17 Clinic Furosemide [Lasix] 1 tab PO DAILY #90 tab 08/18/16 01/18/17 Clinic Gabapentin [Neurontin] 1 cap PO TID #270 cap 08/18/16 01/18/17 Clinic Levothyroxine Sodium [Synthroid] 1 tab PO DAILY #90 tab 08/18/16 01/18/17 Clinic Lisinopril 1 tab PO DAILY #90 tab 08/18/16 01/18/17 Clinic Oxybutynin Chloride [Ditropan Xl] 5 mg PO DAILY #90 tab 08/18/16 01/18/17 Clinic Pioglitazone HCl [Actos] 15 mg PO DAILY #90 tab 08/18/16 01/18/17 Clinic Potassium Chloride [K-Tab ER] 10 meq PO QD #90 tab 08/18/16 01/18/17 Clinic Simvastatin [Zocor] 1 tab PO DAILY #90 tab 08/18/16 01/18/17 Clinic Trazodone HCl 1 tab PO QHS #90 tab 08/18/16 01/18/17 Clinic Oxycodone HCl/Acetaminophen 1 tab PO Q4-6H #60 tab 09/17/16 01/18/17 Clinic [Percocet 5-325 mg Tablet] Tizanidine HCl 1 cap PO TID #90 cap 09/17/16 01/18/17 Clinic Blood Sugar Diagnostic [Precision 1 each IN BID #360 strip 11/10/16 01/18/17 Clinic Xtra] predniSONE Tab [Deltasone Tab] 40 mg PO DAILY #4 tab 01/19/17 Rx 8. Time, care, counseling and coordination of care for this discharge is greater than 30 minutes. Exam - Vitals Vital Signs: Vital Signs Temperature 97.6 F Temperature Source Temporal Artery Scan Pulse Rate [Pulse Oximeter] 50 Pulse Rate 67 Respiratory Rate 18 Blood Pressure [Left Arm] 142/54 Blood Pressure 112/65 Pulse Ox 95 Oxygen Delivery Method Room Air Height 5 ft Weight 79.605 kg Patient Problems - Patient Problem List (1) Back pain Current Visit: Yes Status: Acute (2) Leg weakness Current Visit: Yes Status: Acute
--- NOTE | 2017-01-25 16:40 | PTI REPORT ---
Thank you for the referral of Danna Oquendo. She was seen on 01/19/17 for an inpatient evaluation secondary to low back pain. SUBJECTIVE: The patient is a 71-year-old female. The patient reports she has a past history of an L3-L5 fusion that was performed approximately one year ago. She has also more recently received injections earlier this month; however, her pain has been worsening. She has pain that starts in her back and has been wrapping around the front of her leg. She states it gets so bad that sometimes her leg will give out. She reports yesterday she was moving furniture at home when she felt a pop followed by extreme pain in her back. She went to the ER and was admitted due to pain. PAST MEDICAL HISTORY: Past medical history can be found in the patient's medical record. OBJECTIVE FINDINGS: Pain: The patient reports a pain level currently at 8/10 on the verbal analog scale (0=no pain, 10=worst pain). Bed mobility/Transfers: Upon observation the patient was able to perform all bed mobility and transfers independently or with stand by assist as well as dressing upper and lower extremities. Ambulation: The patient demonstrated the ability to ambulate well over 300 feet at one time with the use of an assistive device of pushing a wheelchair. There was no noticeable foot drop with ambulation. Strength/Range of motion: Bilateral upper and lower extremity range of motion is within functional limits in all planes. Left lower extremity strength was decreased 25% as compared to the right. ASSESSMENT: Problem List: Pain Physical Therapy Goals: To be met by discharge from inpatient: Patient will have a pain level less than or equal to 6/10 in order to perform all ADLs without modification. TREATMENT PLAN: Patient will be seen B.I.D during the week and one time per day over the weekend as an inpatient to address the above goals and objectives. INITIAL TREATMENT: Treatment today consisted of the initial evaluation followed by the patient performing dressing activities independently. She ambulated all the way downstairs to therapy pushing a wheelchair with stand by assistance and gait belt. She received an application of moist heat and e-stim followed by an ultrasound and a soft tissue massage to the low back. She then received manual therapy in the form of bilateral lower extremity stretching with 3D axial separation for the left lower extremity. The patient was issued electrodes. We also discussed participation in pool therapy this afternoon. ARABELLA
== END 2017-01-19 12:59 | disposition home or self-care (01) ==
LOC: ER 13:10 → MED/SURG 18:18
PROVIDERS: ADMIT Internal Medicine; ATTEND Internal Medicine
DX: M54.9 Dorsalgia, unspecified (principal); R53.1 Weakness; E11.9 Type 2 diabetes mellitus without complications; M25.552 Pain in left hip
CPT/HCPCS: 36415; 72197; 73521; 80053 ×2; 81003; 83735; 85025 ×2; 85652; 86140; 94761; 96374; 96375 ×2; 96376; 99284 ×2; A9579; J1885; J2930; J3010; J7512; 90656; 97010; 97014; 97035; 97124; 97140; 97161; A4556; J1644; J2060; J7030

== ENCOUNTER → 2017-01-20 | Outpatient (CLI) | payer OTHER | LOC: MMPC 09:00 | PROVIDERS: ATTEND Physician Assistant | DX: M25.552 Pain in left hip (principal); M54.5 Low back pain | CPT/HCPCS: 99213; G0463 ==

== ENCOUNTER → 2017-03-11 | Outpatient (CLI) | payer OTHER | LOC: MMPC 10:00 | PROVIDERS: ATTEND Neurological Surgery | DX: M54.5 Low back pain (principal); Z98.1 Arthrodesis status; M54.16 Radiculopathy, lumbar region; Z98.890 Other specified postprocedural states | CPT/HCPCS: 99212; G0463 ==

== ENCOUNTER → 2017-07-01 | Outpatient (CLI) | payer OTHER ==
--- NOTE | 2017-07-01 11:07 | DI ---
XR L-SPINE MIN 4 VW,07/01/2017 10:24 AM: Clinical History: Back pain Previous Exam: June 01, 2016 Findings: AP, lateral, flexion and extension views are obtained of the lumbar spine, and demonstrate stable pos tsurgical changes consistent with transpedicular fixation of L3-S1. There is interbody fusion device is noted. There is also some dystrophic calcification within the lateral portions of the transverse processes. There is postsurgical change consistent with prior vertebral plasty of the third lumbar vertebral bod y. A nonobstructive bowel gas pattern is seen. A few pathologic calcifications are noted. There is no evidence of instability on flexion or extension. Impression: Postsurgical changes as above essentially unchanged from the prior exam with no perceptible, new bony fusion of the interbody is.
== END ==
LOC: ORTHO 10:36
PROVIDERS: ATTEND Neurological Surgery
DX: M54.5 Low back pain (principal); Z98.1 Arthrodesis status
CPT/HCPCS: 72110; 99213

== ENCOUNTER 2017-07-14 08:58 | Day surgery (SDC) | payer OTHER ==
[2017-07-14] MEDS ORDERED: TRIAMCINOLONE ACETONIDE 40 MG/1 ML IAC ONE (09:00)
[2017-07-14] MEDS ORDERED: BUPivacaine Inj 0.25% PF - 10ml vial EPIDURAL ONE (09:00)
[2017-07-14 09:29] VITALS: RESP 16; TEMP 96.8
--- NOTE | 2017-07-14 10:32 | GEN.OPNOTE ---
Transforaminal JOVON Procedure: Transforaminal Epidural Steriod Injection Procedure Code - Neurosurgery: 27394 : Lumbar Transforaminal Epidural Level: Left L5 Preoperative Diagnosis: Lumbar Stenosis Postoperative Diagnosis: same -: Consent: Rationale for procedure, nature of procedure, possible risks and benefits were discussed with the patient. Risks including allergic reaction to medications, known effects of steroid medications including transient elevation in blood sugar with aggravation of pre-existing diabetes and remote risk of aseptic necrosis of the hip. Pain at the injection site, inadvertent dural puncture with resultant in CSF leak and headache possibly requiring further treatment. Infection or bleeding with potential risk of neurologic injury with weakness, paralysis or were all reviewed with the patient who wished to proceed. Anesthesia, sedation: No intravenous access or sedation was used. Physiologic monitoring of pulse and oxygen saturation was utilized. Procedure: The patient was placed prone on the operating room table, prepped with Chloraprep and sterilely draped. The skin was anesthetized with 1% Buffered Xylocaine. Under fluoroscopic control a 22-gauge Touhy needle was advanced into the area of the Kambin's triangle at the left L5 level. Imaging confirmation of needle placement in the posterior, inferior and lateral quadrant of the foramen was obtained. Omnipaque was injected under real-time fluoroscopy demonstrating and epidurogram. Following this 2 ml of a mixture of kenalog(40mg/ml) and 1% ropivacaine was injected. AP and lateral images of the final needle placement was obtained. The needle was removed and the patient returned to the post procedure recovery room where they were monitored for any side effects. Pain assessment: Preprocedure pain []/10, post procedure pain []/10. Discharge instructions: Patient was given a pain log to be filled out and returned. A delayed response to the steroids of 2-5 days was discussed.
== END 2017-07-14 10:38 | disposition home or self-care (01) ==
LOC: SDSC 08:58
PROVIDERS: ATTEND Pain Medicine Interventional Pain Medicine
DX: M48.06 Spinal stenosis, lumbar region (principal); M47.26 Other spondylosis with radiculopathy, lumbar region
CPT/HCPCS: 64483; 76000; J3301; S0020